=== PATIENT | female | born 1965 | race Caucasian/White ===

== ENCOUNTER 2016-12-31 17:48 | Emergency (ER) | payer MEDICAID ==
[~2016-12-31] VITALS: Ht 170.2 cm; Wt 50.0 kg
[2016-12-31 17:50] VITALS: BP 138/78; PULSE 78; RESP 17; TEMP 98.2; O2SAT 98
[2016-12-31] MEDS ORDERED: IBUP800T23 PO (18:13)
--- NOTE | 2016-12-31 18:13 | PD ---
HPI Chief Complaint: Skin Problem Time Seen by Provider: 18:08 Travel History International Travel<30 days: No Contact w/Intl Traveler<30days: No Traveled to known affect area: No History of Present Illness HPI Patient is a 51-year-old female presented to them or to ER for evaluation of abrasions to her right foot. Patient was doing yard work with a weed whacker when she dropped it and the spinning part of it continued to rotate cutting her foot. Patient is unsure of her last tetanus vaccine. She ran under cold water prior to arrival. Patient states she came to the emergency department because she was worried that she was actively bleeding under her skin. She reports the pain as a 6 out of 10 and describes it as sore. Patient denies any other complaints at this time. [facility]LY [facility] Past Medical History Medical History: Denies Significant Hx Social History Alcohol Use: No Tobacco Use: Yes Substance Use: No Allergies-Medications (Allergen,Severity, Reaction): Coded Allergies: No Known Allergies (Unverified , 12/31/16) Review of Systems Except as stated in HPI: all other systems reviewed are Neg Musculoskeletal: Positive: Pain Skin: Positive Change in Pigmentation Physical Exam Narrative GENERAL: Well-nourished, well-developed patient. SKIN: Focused skin assessment warm/dry. Mild edema and ecchymosis in a linear fashion to the dorsal aspect of the right foot, no active bleeding noted. HEAD: Normocephalic. EYES: No scleral icterus. No injection or drainage. NECK: Supple, trachea midline. No JVD or lymphadenopathy. CARDIOVASCULAR: Regular rate and rhythm without murmurs, gallops, or rubs. RESPIRATORY: Breath sounds equal bilaterally. No accessory muscle use. GASTROINTESTINAL: Abdomen soft, non-tender, nondistended. MUSCULOSKELETAL: No cyanosis, or edema. Positive pedal pulses, brisk less than 3 second capillary refill. Full range of motion in right foot and toes. BACK: Nontender without obvious deformity. No CVA tenderness. Data Data Last Documented VS Vital Signs Date Time Temp Pulse Resp B/P Pulse Ox O2 Delivery O2 Flow Rate FiO2 12/31/16 17:50 98.2 78 17 138/78 98 Orders Tetanus/Diphtheria Tox Adult (Tetanus/Di (12/31/16 18:15) MDM Medical Decision Making Medical Screen Exam Complete: Yes Emergency Medical Condition: Yes Interpretation(s) Vital Signs Date Time Temp Pulse Resp B/P Pulse Ox O2 Delivery O2 Flow Rate FiO2 12/31/16 17:50 98.2 78 17 138/78 98 Differential Diagnosis Contusion versus abrasion versus laceration versus fracture versus other Narrative Course Patient is a 51-year-old female presenting to the emergency department for evaluation of abrasions to her right foot that she sustained while doing yardwork. Patient is neurovascularly intact, she did not drop anything onto her foot. Patient has full range of motion, her tetanus vaccine will be updated in the emergency department today. Patient was encouraged to rest, ice , elevate extremity. She was provided with a prescription for an anti- inflammatory medication. She is encouraged to wear sneakers when using yard equipment. Patient was encouraged return to emergency department for any new or worsening symptoms. Patient verbalized understanding of these instructions. Patient is stable for discharge. Diagnosis Primary Impression: Abrasion foot/toe Referrals: Primary Care Physician Patient Instructions: Abrasion (ED), General Instructions Additional Instructions: Follow-up with her primary doctor Rest, ice, elevate extremity Take medications as directed Wear sneakers or protective footwear while utilizing yard equipment Return to emergency department for any new or worsening symptoms Med/Other Pt SpecificInfo: Prescription(s) given Scripts Ibuprofen 800 Mg [id number] Mg PO Q8H PRN (Pain/Inflammation) 10 Days Ref 0 Prov:Omaira Lovett 12/31/16 Disposition: 01 DISCHARGE HOME Condition: Stable Omaira Lovett Dec 31, 2016 18:13
[2016-12-31] MEDS ORDERED: TETANUS/DIPHTHERIA TOXOID ADULT 0.5 ML VIAL IM ONE (18:15)
== END 2016-12-31 18:24 | disposition home or self-care (01) ==
LOC: NETRI 17:48
DX: S90.811A Abrasion, right foot, initial encounter (principal); Z72.0 Tobacco use; W20.8XXA Other cause of strike by thrown, projected or falling object, initial encounter; Y93.H2 Activity, gardening and landscaping; Y92.007 Garden or yard of unspecified non-institutional (private) residence as the place of occurrence of the external cause; Y99.9 Unspecified external cause status; Z23 Encounter for immunization
CPT/HCPCS: 90471; 90714